=== PATIENT | female | born 1990 | race Caucasian/White ===

== ENCOUNTER 2017-12-02 15:42 | Outpatient (CLI) | payer OTHER | END 2017-12-02 15:43 | disposition home or self-care (01) | LOC: DTY/OP 15:42 | PROVIDERS: ATTEND Surgery | DX: E66.01 Morbid (severe) obesity due to excess calories (principal); I10 Essential (primary) hypertension | CPT/HCPCS: 97802 ==

== ENCOUNTER 2018-01-03 07:58 | Outpatient (CLI) | payer BC ==
[2018-01-03 09:27] LABS: #Basophils 0.1 thou/uL (0.0-0.2); #Eosinphils 0.2 thou/uL (0.0-0.7); #Lymphocytes 3.8 thou/uL (1.20-3.40); #Monocytes 0.7 thou/uL (0.11-0.59); #Neutrophils 4.5 thou/uL (1.40-6.50); %Eosinophils 2.3 % (0.0-10.0); %Lymphocytes 41.1 % (21.0-51.0); %Monocytes 7.3 % (0.0-10.0); %Neutrophils 48.4 % (42.0-75.0); Hemoglobin 13.8 g/dL (12.0-16.0); Mean Corpuscular HGB CONC 33.4 g/dL (32.0-36.0); Mean Corpuscular Hemoglobin 30.2 pg (27.0-31.0); Mean Corpuscular Volume 90.4 fL (78.0-98.0); Mean Platelet Volume 6.5 fL (7.4-10.4); Platelet Count 287 thou/uL (130-400); RBC Distribution Width 11.6 % (11.5-14.5); Red Blood Cell (RBC) Count 4.58 mill/uL (4.20-5.40); White Blood Cell (WBC) Count 9.2 thou/uL (4.8-10.8)
--- NOTE | 2018-01-03 09:28 | RAD ---
TWO VIEW CHEST: HISTORY: Preoperative evaluation. FINDINGS: The lung [place] are clear. The heart and mediastinum are unremarkable. The osseous structures are u nremarkable. IMPRESSION: Unremarkable chest. POS: [facility]
[2018-01-03 09:41] LABS: BHCG - Serum Negative (NEGATIVE); Pregs Control Background? CLEAR/WHITE (CLR/WHITE); Pregs Control Bar Appear? YES (CONTROL BAR)
[2018-01-03 09:44] LABS: Hemoglobin A1c 4.9 % (4.0-6.0)
[2018-01-03 09:51] LABS: ALT (SGPT) 26 U/L (8-55); AST (SGOT) 20 U/L (5-34); Albumin 4.5 g/dL (3.5-5.0); Alkaline Phosphatase 54 U/L (40-150); Anion Gap 10 mmol/L (10-20); BUN (Urea Nitrogen) 10 mg/dL (7.0-18.7); Bilirubin, Direct 0.2 mg/dL (0.1-0.3); Bilirubin, Total 0.3 mg/dL (0.2-1.2); Calc. Creatinine Clearance 0 mL/min (70-130); Calcium 9.4 mg/dL (7.8-10.44); Carbon Dioxide 25 mmol/L (22-29); Chloride 108 mmol/L (98-107); Estimated GFR-MDRD Greater than 90; Glucose 85 mg/dL (70-105); Potassium 4.5 mmol/L (3.5-5.1); Protein, Total 7.5 g/dL (6.0-8.3); Sodium 138 mmol/L (136-145)
[2018-01-03 10:10] LABS: Free T4 (Free Thyroxine) 0.98 ng/dL (0.70-1.48); Thyroid Stimulating Hormone 6.5763 uIU/mL (0.35-4.94)
--- NOTE | 2018-01-06 11:47 | EKG ---
Test Reason : Blood Pressure : / mmHG Vent. Rate : 079 BPM Atrial Rate : 079 BPM P-R Int : 132 ms QRS Dur : 082 ms QT Int : 396 ms P-R-T Axes : 032 069 040 degrees QTc Int : 454 ms Normal sinus rhythm with sinus arrhythmia Normal ECG Confirmed by ILANA YO ([id number]) on 01/06/2018 11:46:44 AM Referred By: LISY Confirmed By:ILANA YO
== END 2018-01-03 07:59 | disposition home or self-care (01) ==
LOC: LABBT 07:58
PROVIDERS: ATTEND Surgery
DX: Z01.818 Encounter for other preprocedural examination (principal); E66.01 Morbid (severe) obesity due to excess calories; E03.9 Hypothyroidism, unspecified; Z79.899 Other long term (current) drug therapy
CPT/HCPCS: 71046; 80048; 80076; 83036; 84439; 84443; 84703; 85025; 93005; 93010

== ENCOUNTER 2018-01-03 08:00 | Inpatient (IN) | payer BC ==
[2018-01-03 08:17] VITALS: BMI 40.8
[2018-01-06] MEDS ORDERED: Heparin 5,000 UNITS/ML VIAL ONE (12:34)
[2018-01-06] MEDS ORDERED: CEFAZOLIN 2 GM/50 ML BAG ONE (12:34)
[2018-01-06] MEDS ORDERED: Midazolam HCl 2 mg/2 ml Vial ONE (13:50)
[2018-01-06] MEDS ORDERED: Bupivacaine/Epinephrine 0.25% 30 ML VIAL ONE (13:57)
[2018-01-06] MEDS ORDERED: Fentanyl 100 MCG/2 ML VIAL ONE ×2 (14:04→15:42)
[2018-01-06] MEDS ORDERED: SUGAMMADEX SODIUM 500 MG/5 ML VIAL ONE (15:17)
[2018-01-06] MEDS ORDERED: Lidocaine 1% PF 5 ML VIAL ONE (15:28)
[2018-01-06] MEDS ORDERED: PROPOFOL 200 MG/20 ML VIAL ONE (15:28)
[2018-01-06] MEDS ORDERED: Ondansetron PF 4 MG/2 ML Vial ONE (15:28)
[2018-01-06] MEDS ORDERED: Glycopyrrolate 0.2 MG/ML 5 ML SYRINGE ONE (15:28)
[2018-01-06] MEDS ORDERED: Ketorolac Tromethamine 30 MG/ML VIAL ONE (15:28)
[2018-01-06] MEDS ORDERED: Zolpidem Tartrate 5 MG TAB PO PRN (15:35)
[2018-01-06] MEDS ORDERED: diphenhydrAMINE 25 MG CAP PO PRN (15:35)
[2018-01-06] MEDS ORDERED: Naloxone HCl 0.4 mg/ml Vial IV PRN (15:35)
[2018-01-06] MEDS ORDERED: Promethazine HCl 25 MG/ML VIAL IM PRN ×3 (15:35→17:29)
[2018-01-06] MEDS ORDERED: diphenhydrAMINE 50 MG/ML VIAL IM PRN (15:35)
[2018-01-06] MEDS ORDERED: Promethazine HCl 25 MG/ML VIAL SLOW IVP PRN (15:35)
[2018-01-06] MEDS ORDERED: Ondansetron HCl/PF 4 MG/2 ML Vial IVP PRN (15:35)
[2018-01-06] MEDS ORDERED: diphenhydrAMINE 50 MG/ML VIAL IVP PRN ×2 (15:35→17:29)
[2018-01-06] MEDS ORDERED: fentaNYL Citrate/PF 2,000 MCG in Sodium Chloride 0.9% 60 ML IV PRN (15:35)
[2018-01-06] MEDS ORDERED: Meperidine HCl/PF 25 MG/ML VIAL SLOW IVP PRN (15:42)
[2018-01-06] MEDS ORDERED: Communication Order-Pharmacy FS SCH (15:45)
[2018-01-06] MEDS ORDERED: Ondansetron PF 4 MG/2 ML Vial IVP PRN (17:29)
[2018-01-06] MEDS ORDERED: Hydrocodone-Acetamin 15 ML UDCUP PO PRN (17:29)
[2018-01-06] MEDS ORDERED: Dextrose 50% Abboject 50 ML SYRINGE SLOW IVP PRN (17:29)
[2018-01-06] MEDS ORDERED: Dextrose 5% in Water 1,000 ML IV PRN (17:29)
[2018-01-06] MEDS ORDERED: hydrALAZINE 20 MG/ML VIAL SLOW IVP PRN (17:29)
[2018-01-06] MEDS: D5 1/2 NS w/20 mEq KCL 1,000 ML IV SCH (18:24)
[2018-01-06] MEDS: Acetaminophen 1,000 MG in Premix Bag 1 BAG IVPB SCH (19:25)
[2018-01-06] MEDS ORDERED: Scopolamine 1.5 mg/72 hour Patch TOP SCH (19:45)
[2018-01-06] MEDS ORDERED: Enoxaparin Sodium 40 MG/0.4 ML SYRINGE SC SCH (21:00)
[2018-01-06] MEDS: Ondansetron PF 4 MG/2 ML Vial IVP PRN (22:51)
[2018-01-07] MEDS: Acetaminophen 1,000 MG in Premix Bag 1 BAG IVPB SCH ×2 (01:10→07:58)
[2018-01-07] MEDS: D5 1/2 NS w/20 mEq KCL 1,000 ML IV SCH ×2 (01:19→12:39)
[2018-01-07] MEDS ORDERED: Levothyroxine Sodium 25 MCG TAB PO SCH (06:00)
[2018-01-07] MEDS ORDERED: Levothyroxine Sodium 112 MCG TAB PO SCH (06:00)
[2018-01-07 06:09] LABS: #Eosinphils 0.1 thou/uL (0.0-0.7); #Lymphocytes 3.6 thou/uL (1.20-3.40); #Monocytes 0.9 thou/uL (0.11-0.59); #Neutrophils 6.9 thou/uL (1.40-6.50); %Basophils 0.3 % (0.0-1.0); %Eosinophils 1.1 % (0.0-10.0); %Lymphocytes 30.6 % (21.0-51.0); %Monocytes 8.1 % (0.0-10.0); %Neutrophils 59.9 % (42.0-75.0); Hemoglobin 13.1 g/dL (12.0-16.0); Mean Corpuscular HGB CONC 34.4 g/dL (32.0-36.0); Mean Corpuscular Hemoglobin 30.9 pg (27.0-31.0); Mean Platelet Volume 6.4 fL (7.4-10.4); Platelet Count 274 thou/uL (130-400); RBC Distribution Width 11.5 % (11.5-14.5); Red Blood Cell (RBC) Count 4.24 mill/uL (4.20-5.40); White Blood Cell (WBC) Count 11.6 thou/uL (4.8-10.8)
[2018-01-07 06:13] LABS: Anion Gap 12 mmol/L (10-20); BUN (Urea Nitrogen) 6 mg/dL (7.0-18.7); Calc. Creatinine Clearance 225 mL/min (70-130); Calcium 8.3 mg/dL (7.8-10.44); Carbon Dioxide 21 mmol/L (22-29); Chloride 108 mmol/L (98-107); Estimated GFR-MDRD Greater than 90; Glucose 104 mg/dL (70-105); Potassium 3.6 mmol/L (3.5-5.1); Sodium 137 mmol/L (136-145)
[2018-01-07] MEDS: Ondansetron PF 4 MG/2 ML Vial IVP PRN (07:57)
[2018-01-07] MEDS ORDERED: Hydrocodone-Acetamin 15 ML UDCUP PO PRN (08:54)
[2018-01-07] MEDS ORDERED: Pramipexole Di-HCl 1 MG TAB PO SCH (09:00)
[2018-01-07] MEDS ORDERED: LEVONORGESTREL ETHIN ESTRADIOL PO SCH (09:00)
[2018-01-07] MEDS ORDERED: Pantoprazole 40 MG VIAL IVP SCH (09:00)
[2018-01-07] MEDS ORDERED: Topiramate 25 MG TAB PO SCH (09:00)
[2018-01-07] MEDS ORDERED: Escitalopram Oxalate 20 mg Tablet PO SCH (09:00)
[2018-01-07 11:40] VITALS: BP 150/97; TEMP 98.6
--- NOTE | 2018-01-07 11:48 | DIS ---
DATE OF ADMISSION: January 06, 2018 DATE OF DISCHARGE: January 07, 2018 ADMITTING DIAGNOSIS: Morbid obesity. DISCHARGE DIAGNOSIS: Morbid obesity. PROCEDURE: Laparoscopic sleeve gastrectomy by Dr. Carrero without complication. CONDITION AT DISCHARGE: Improved. STAFF: Dr. Jesse Carrero. HOSPITAL COURSE: On postop day #1, the patient is tolerating the liquid diet. She is ambulatory. N o fevers or tachycardia. Her abdomen is healing well. ASSESSMENT: Postop day #1, sleeve. PLAN: Discharge home. Prescriptions for Lortab elixir Zofran already called in. Follow up with me in 2 weeks.
--- NOTE | 2018-01-08 15:25 | OP ---
DATE OF PROCEDURE: 01/06/2018. PREOPERATIVE DIAGNOSIS: Morbid obesity with a body mass index of 41. POSTOPERATIVE DIAGNOSIS: Morbid obesity with a body mass index of 41. PROCEDURE PERFORMED: Laparoscopic sleeve gastrectomy, [place] staple line reinforcement and 38-Dominican b ougie. SURGEON: Dr. Carrero. ANESTHESIA: General. ESTIMATED BLOOD LOSS: Minimal. COMPLICATIONS: None. SPECIMEN: Stomach. FINDINGS: Normal postoperative EGD. PROCEDURE IN DETAIL: The patient was taken to the operating room and placed supine on the table. Af ter general anesthetic was obtained, arms and legs were double strapped to bariatric table. OG tube was used to decompress the stomach. The abdomen is prepped and draped in a sterile fashion. Left neri bcostal 5-mm Optiview trocar was placed in usual fashion and high-flow pneumoperitoneum was obtained. Left and right abdominal 12-mm ports as well as a right subcostal 5 mm port were placed under direc t visualization. A 5 mm incision was made at the xiphoid and the Ngoc was used to raise the sharon er off the GE junction. Short gastrics were taken down from mid body of stomach to left prema of the diaphragm. Left prema, posterior fundus, angle of His is completely dissected. Short gastrics were t aken down to a distance of 5 cm proximal to the pylorus. A 38-Dominican bougie was brought and its tip left in the antrum of the stomach. Multiple loads of an [place] stapling device are used to form the sleeve. The first is fired up at a distance of 6 cm proximal to the pylorus angled up towards the i ncisura. Care was taken to avoid being too close to incisura. Multiple loads were then fired up milton ng the bougie, stomach is completely transected at the angle of His. The stomach was removed from th e left abdominal incision. This fascial defect was closed using GraNee needle 0 Vicryl tie. All por t sites were infiltrated using local anesthetic. Bougie was removed and an EGD scope was passed into the esophagus, stomach to the level of the duodenum without obstruction. There is no air leakage or bleeding on the staple line. There was no stricture at the incisura. EGD scope was used to decompr ess the stomach, it was pulled and removed. All ports are removed under direct visualization without bleeding. Pneumoperitoneum was let down. The Vicryls is closed in the left abdomen. All incisions were irrigated and closed using 4-0 Monocryl and Dermabond. The patient was en route to recovery in stable condition. All instrument counts, needle counts, and lap counts were correct.
== END 2018-01-07 13:25 | disposition home or self-care (01) | DRG 621 ==
LOC: SURG A 01-06 11:55 → SJJU 01-06 16:59
PROVIDERS: ADMIT Surgery; ATTEND Surgery
PROC: 0DB64Z3 Excision of Stomach, Percutaneous Endoscopic Approach, Vertical (ICD-10-PCS; principal; 2018-01-06)
DX: E66.01 Morbid (severe) obesity due to excess calories (principal); G43.909 Migraine, unspecified, not intractable, without status migrainosus; E03.9 Hypothyroidism, unspecified; G25.81 Restless legs syndrome; R73.03 Prediabetes; E28.2 Polycystic ovarian syndrome; Z68.41 Body mass index [BMI] 40.0-44.9, adult; Z01.818 Encounter for other preprocedural examination; Z79.899 Other long term (current) drug therapy
CPT/HCPCS: 36415; 71046; 80048; 80076; 83036; 84439; 84443; 84703; 85025; 88307; 88312; 93005; 93010; 94760; C9113; J0131; J1644; J1650; J1885; J2001; J2250; J2405; J2550; J2704; J3010; J7050

== ENCOUNTER 2020-04-23 21:29 | Emergency (ER) | payer BC, SELFPAY ==
[2020-04-24 00:44] LABS: #Basophils 0.1 thou/uL (0.0-0.2); #Eosinphils 0.1 thou/uL (0.0-0.7); #Lymphocytes 4.1 thou/uL (1.20-3.40); #Monocytes 0.6 thou/uL (0.11-0.59); #Neutrophils 4.1 thou/uL (1.40-6.50); %Basophils 1.2 % (0.0-1.0); %Eosinophils 1.7 % (0.0-10.0); %Lymphocytes 45.4 % (21.0-51.0); %Monocytes 6.7 % (0.0-10.0); %Neutrophils 45.1 % (42.0-75.0); Hemoglobin 14.3 g/dL (12.0-16.0); Mean Corpuscular HGB CONC 35.2 g/dL (32.0-36.0); Mean Corpuscular Hemoglobin 31.9 pg (27.0-31.0); Mean Corpuscular Volume 90.7 fL (78.0-98.0); Mean Platelet Volume 6.2 fL (7.4-10.4); Platelet Count 306 thou/uL (130-400); RBC Distribution Width 11.2 % (11.5-14.5); Red Blood Cell (RBC) Count 4.47 mill/uL (4.20-5.40)
[2020-04-24 01:05] LABS: ALT (SGPT) 30 U/L (8-55); AST (SGOT) 22 U/L (5-34); Albumin 4.5 g/dL (3.5-5.0); Alkaline Phosphatase 62 U/L (40-110); Anion Gap 12 mmol/L (10-20); BUN (Urea Nitrogen) 13 mg/dL (7.0-18.7); Bilirubin, Total 0.4 mg/dL (0.2-1.2); CK (CPK) 56 U/L (29-168); Calc. Creatinine Clearance 0 mL/min (70-130); Calcium 9.1 mg/dL (7.8-10.44); Carbon Dioxide 24 mmol/L (22-29); Chloride 109 mmol/L (98-107); Globulin 3.2 g/dL (2.4-3.5); Glucose 85 mg/dL (70-105); Protein, Total 7.7 g/dL (6.0-8.3); Sodium 141 mmol/L (136-145)
[2020-04-24] MEDS ORDERED: Ondansetron PF 4 MG/2 ML Vial ONE (02:33)
[2020-04-24] MEDS ORDERED: Ketorolac Tromethamine 30 MG/ML VIAL ONE (02:33)
[2020-04-24] MEDS ORDERED: diphenhydrAMINE 50 MG/ML VIAL ONE ×2 (02:33→03:45)
[2020-04-24 03:06] LABS: BHCG - Serum Negative (NEGATIVE); Pregs Control Background? CLEAR/WHITE (CLR/WHITE); Pregs Control Bar Appear? YES (CONTROL BAR)
[2020-04-24] MEDS ORDERED: Morphine 4 MG/ML VIAL ONE (03:45)
--- NOTE | 2020-04-24 08:33 | RAD ---
XR Chest 1 View Portable History: Chest pain Comparison: Radiograph January 2018 Findings: No confluent airspace consolidation, pneumothorax or effusion. No acute osseous abnormality . Cardiac silhouette and mediastinal contours are within normal limits. Impression: No acute intrathoracic abnormality.
[2020-04-24] MEDS ORDERED: Iopamidol-370 76% 500 ML 1 ML ONE (09:30)
--- NOTE | 2020-04-24 10:20 | CT ---
PRELIMINARY REPORT/[facility]/EMERGENCY AFTER HOURS PROCEDURE: EXAM: CTA Chest with Intravenous Contrast CLINICAL HISTORY: 29-year-old female patient presents ER with complaint of chest pain, shortness of b reath that began yesterday and worsened earlier this evening. The patient reports that her shortness of breath has worsened and she has pain with deep inspiration. The patient has no fever, body aches, chills, vomiting, diarrhea, abdominal pain, or any other symptoms at this time. D-Dimer Test 0.92 - H TECHNIQUE: Axial CTA images of the chest with intravenous contrast. Three-dimensional MIP/volume rend ered reformations were performed. CONTRAST: With; ISOVUE COMPARISON: None provided. FINDINGS: PULMONARY ARTERIES There is no intraluminal filling defect suspicious for PE. AORTA No thoracic aortic aneurysm or dissection. LUNGS The lungs are clear. No pulmonary mass. No focal airspace consolidation. PLEURAL SPACES No pleural effusion. No pneumothorax. HEART AND MEDIASTINUM No cardiomegaly. No significant pericardial effusion. LYMPH NODES Multiple prominent lymph nodes along the upper trachea with the largest measuring up to 8 .6 mm in short axis (series 2, image 3). No mediastinal or hilar lymphadenopathy. BONES No focal osseous abnormality or acute fracture. CHEST WALL AND UPPER ABDOMEN Post surgical changes are present along the greater curvature of the sto mach, partially visualized. Images through the upper abdomen are otherwise unremarkable. The chest w all is unremarkable. IMPRESSION: No evidence of pulmonary embolism or other acute pulmonary findings. ELECTRONICALLY SIGNED BY: Sarmad Narayan MD Apr 24, 2020 4:34:47 AM METHODS EXAMINER FINAL REPORT CT ANGIO OF CHEST PERFORMED WITH INTRAVENOUS CONTRAST ENHANCEMENT AND 3D RECONSTRUCTION: HISTORY: Chest pain and shortness of breath. FINDINGS: The lungs are clear of any infiltrative process. No pleural effusions or pulmonary nodules. There is no significant mediastinal or hilar adenopathy. Thoracic aorta is normal in caliber. There is fairly good pulmonary artery opacification. No CT evidence for pulmonary embolus. Postoperative changes of the stomach are present. IMPRESSION: 1. No CT evidence for a pulmonary embolus. 2. This report is in agreement with the temporary report issued by [facility]. POS: OFF
== END 2020-04-24 05:10 | disposition home or self-care (01) ==
LOC: ERS 21:29
DX: R07.9 Chest pain, unspecified (principal); R06.02 Shortness of breath; E03.9 Hypothyroidism, unspecified
CPT/HCPCS: 36415; 71045; 71275; 80053; 82550; 84484; 84703; 85025; 85379; 96374; 96375; 96376; J1200; J1885; J2270; J2405; Q9967

== ENCOUNTER 2020-08-17 08:20 | Outpatient (CLI) | payer BC | END 2020-08-17 08:21 | disposition home or self-care (01) | LOC: BICRAD 08:20 | PROVIDERS: ATTEND Preventive Medicine Undersea and Hyperbaric Medicine | DX: M47.816 Spondylosis without myelopathy or radiculopathy, lumbar region (principal) | CPT/HCPCS: 72100; 72170 ==

== ENCOUNTER 2021-03-16 04:30 | Emergency (ER) | payer SELFPAY ==
[2021-03-16 05:52] LABS: #Basophils 0.1 thou/uL (0.0-0.2); #Eosinphils 0.2 thou/uL (0.0-0.7); #Lymphocytes 4.2 thou/uL (1.20-3.40); #Monocytes 1.1 thou/uL (0.11-0.59); #Neutrophils 7.8 thou/uL (1.40-6.50); %Basophils 0.7 % (0.0-1.0); %Eosinophils 1.8 % (0.0-10.0); %Lymphocytes 31.3 % (21.0-51.0); %Neutrophils 58.3 % (42.0-75.0); Hemoglobin 14.8 g/dL (12.0-16.0); Mean Corpuscular HGB CONC 35.9 g/dL (32.0-36.0); Mean Corpuscular Hemoglobin 32.6 pg (27.0-31.0); Mean Corpuscular Volume 90.8 fL (78.0-98.0); Mean Platelet Volume 6.4 fL (7.4-10.4); Platelet Count 305 thou/uL (130-400); RBC Distribution Width 11.4 % (11.5-14.5); Red Blood Cell (RBC) Count 4.52 mill/uL (4.20-5.40); White Blood Cell (WBC) Count 13.4 thou/uL (4.8-10.8)
[2021-03-16] MEDS ORDERED: Promethazine HCl 25 MG/ML VIAL ONE ×2 (06:02→08:14)
[2021-03-16 06:13] LABS: ALT (SGPT) 68 U/L (8-55); AST (SGOT) 54 U/L (5-34); Albumin 4.5 g/dL (3.5-5.0); Alkaline Phosphatase 66 U/L (40-110); Anion Gap 15 mmol/L (10-20); BUN (Urea Nitrogen) 10 mg/dL (7.0-18.7); Bilirubin, Total 0.5 mg/dL (0.2-1.2); Calc. Creatinine Clearance 0 mL/min (70-130); Calcium 9.7 mg/dL (7.8-10.44); Carbon Dioxide 22 mmol/L (22-29); Chloride 104 mmol/L (98-107); Globulin 3.8 g/dL (2.4-3.5); Glucose 108 mg/dL (70-105); Lipase 19 U/L (8-78); Potassium 3.8 mmol/L (3.5-5.1); Protein, Total 8.3 g/dL (6.0-8.3); Sodium 137 mmol/L (136-145)
[2021-03-16 06:16] LABS: BHCG - Serum Negative (NEGATIVE); Pregs Control Background? CLEAR/WHITE (CLR/WHITE); Pregs Control Bar Appear? YES (CONTROL BAR)
[2021-03-16] MEDS ORDERED: Ondansetron PF 4 MG/2 ML Vial ONE (06:49)
[2021-03-16 06:53] LABS: Bilirubin Negative (Negative); Blood, Urine Negative (Negative); Clarity Turbid (Clear); Glucose, Urine (Dipstick) Normal (Negative); Ketone, Urine Negative (Negative); Leukocyte Negative Leu/uL (Negative); Nitrite Negative (Negative); Protein, Urine (Dipstick) 100 mg/dL (Neg-Trace); Specific Gravity, Urine 1.025 (1.002-1.036); Urobilinogen Normal mg/dL (Less than 2); WBC/HPF 0-3 HPF (0-3); pH, Urine 5.5 (5.0-9.0)
[2021-03-16 07:08] LABS: Bacteria/HPF 2+ HPF (None Seen); RBC/HPF 0-3 HPF (0-3)
[2021-03-16] MEDS ORDERED: Iopamidol-370 76% 500 ML 1 ML ONE (14:05)
== END 2021-03-16 08:47 | disposition home or self-care (01) ==
LOC: ERS 04:30
DX: K52.9 Noninfective gastroenteritis and colitis, unspecified (principal); G43.909 Migraine, unspecified, not intractable, without status migrainosus; E03.9 Hypothyroidism, unspecified; K21.9 Gastro-esophageal reflux disease without esophagitis; F17.290 Nicotine dependence, other tobacco product, uncomplicated
CPT/HCPCS: 71045; 74177; 80053; 81003; 81015; 83690; 84484; 84703; 85025; 87086; 93005; 96372; 96374; 96375; 96376; J0500; J2405; J2550; Q9967

== ENCOUNTER 2021-04-24 14:09 | Inpatient (IN) | payer BC ==
[~2021-04-24 14:09] MED LIST: GASTROGRAFIN 30 ML BOT ONE; Iopamidol 370 76% 100 ML VIAL ONE
[2021-04-24] MEDS ORDERED: Promethazine HCl 25 MG/ML VIAL ONE (14:43)
[2021-04-24] MEDS ORDERED: Ketorolac Tromethamine 30 MG/ML VIAL ONE ×2 (14:52→15:00)
[2021-04-24 15:04] LABS: #Basophils 0.1 thou/uL (0.0-0.2); #Eosinphils 0.1 thou/uL (0.0-0.7); #Monocytes 0.6 thou/uL (0.11-0.59); %Basophils 0.9 % (0.0-1.0); %Eosinophils 1.5 % (0.0-10.0); %Lymphocytes 38.6 % (21.0-51.0); %Monocytes 7.1 % (0.0-10.0); %Neutrophils 51.9 % (42.0-75.0); Hemoglobin 14.3 g/dL (12.0-16.0); Mean Corpuscular HGB CONC 33.7 g/dL (32.0-36.0); Mean Corpuscular Hemoglobin 31.1 pg (27.0-31.0); Mean Corpuscular Volume 92.5 fL (78.0-98.0); Mean Platelet Volume 6.3 fL (7.4-10.4); Platelet Count 268 thou/uL (130-400); RBC Distribution Width 11.7 % (11.5-14.5); Red Blood Cell (RBC) Count 4.58 mill/uL (4.20-5.40); White Blood Cell (WBC) Count 7.7 thou/uL (4.8-10.8)
[2021-04-24 15:25] LABS: ALT (SGPT) 76 U/L (8-55); AST (SGOT) 60 U/L (5-34); Albumin 4.5 g/dL (3.5-5.0); Alkaline Phosphatase 66 U/L (40-110); Anion Gap 15 mmol/L (10-20); BUN (Urea Nitrogen) 9 mg/dL (7.0-18.7); Bilirubin, Total 0.5 mg/dL (0.2-1.2); Calc. Creatinine Clearance 0 mL/min (70-130); Calcium 9.3 mg/dL (7.8-10.44); Carbon Dioxide 22 mmol/L (22-29); Chloride 107 mmol/L (98-107); Globulin 3.5 g/dL (2.4-3.5); Glucose 104 mg/dL (70-105); Lipase 25 U/L (8-78); Potassium 3.6 mmol/L (3.5-5.1); Sodium 140 mmol/L (136-145)
[2021-04-24 15:34] LABS: Bilirubin Negative (Negative); Blood, Urine Negative (Negative); Clarity Clear (Clear); Glucose, Urine (Dipstick) Normal (Negative); Ketone, Urine Negative (Negative); Leukocyte Negative Leu/uL (Negative); Nitrite Negative (Negative); Protein, Urine (Dipstick) 10 mg/dL (Neg-Trace); Specific Gravity, Urine 1.025 (1.002-1.036)
[2021-04-24] MEDS ORDERED: Ondansetron PF 4 MG/2 ML Vial ONE (16:15)
[2021-04-24 16:17] LABS: BHCG - Serum Negative (NEGATIVE); Pregs Control Background? CLEAR/WHITE (CLR/WHITE); Pregs Control Bar Appear? YES (CONTROL BAR)
[2021-04-24] MEDS ORDERED: Morphine 4 MG/ML VIAL ONE (17:31)
[2021-04-24] MEDS ORDERED: Ondansetron ODT 4 MG TAB PO PRN (19:00)
[2021-04-24] MEDS ORDERED: Promethazine HCl 25 MG in Sodium Chloride 0.9% 50 ML IVPB PRN (19:09)
[2021-04-24 19:25] VITALS: BMI 40.7
[2021-04-24] MEDS: Lactated Ringer's 1,000 ML IV SCH (20:29)
[2021-04-24] MEDS: Pramipexole Di-HCl 1 MG TAB PO SCH (21:32)
[2021-04-24] MEDS: Escitalopram Oxalate 20 mg Tablet PO SCH (21:32)
[2021-04-24] MEDS: Topiramate 25 MG TAB PO SCH (21:32)
[2021-04-24] MEDS ORDERED: Acetaminophen 650 MG/20.3 ML UDCUP PO PRN (21:35)
[2021-04-24 22:22] LABS: Amphetamine Not Detected (NotDetected); Barbiturates Screen Detected (NotDetected); Benzodiazepine Screen Not Detected (NotDetected); Cocaine Metabolite Screen Not Detected (NotDetected); Methadone Not Detected (NotDetected); Methamphetamine Not Detected (NotDetected); Opiate Screen Not Detected (NotDetected); Oxycodone Screen Not Detected (NotDetected); Phencyclidine (PCP) Not Detected (NotDetected); THC/Cannabinoid Screen Not Detected (NotDetected); Tricyclic Screen Not Detected (NotDetected)
[2021-04-25] MEDS ORDERED: Haloperidol 1 MG TAB PO SCH (00:15)
[2021-04-25] MEDS ORDERED: tiZANidine HCl 4 MG TAB PO SCH (00:15)
[2021-04-25] MEDS: Lactated Ringer's 1,000 ML IV SCH ×5 (03:02→21:42)
[2021-04-25] MEDS: Promethazine 25 MG TAB PO PRN ×3 (03:02→17:16)
[2021-04-25] MEDS: Levothyroxine Sodium 25 MCG TAB PO SCH (06:34)
[2021-04-25] MEDS: Levothyroxine Sodium 112 MCG TAB PO SCH (06:34)
[2021-04-25 07:18] LABS: ALT (SGPT) 57 U/L (8-55); AST (SGOT) 39 U/L (5-34); Albumin 3.7 g/dL (3.5-5.0); Alkaline Phosphatase 53 U/L (40-110); Anion Gap 10 mmol/L (10-20); BUN (Urea Nitrogen) 6 mg/dL (7.0-18.7); Bilirubin, Total 0.3 mg/dL (0.2-1.2); Calc. Creatinine Clearance 212 mL/min (70-130); Calcium 8.3 mg/dL (7.8-10.44); Carbon Dioxide 22 mmol/L (22-29); Chloride 111 mmol/L (98-107); Globulin 2.6 g/dL (2.4-3.5); Glucose 93 mg/dL (70-105); Potassium 3.9 mmol/L (3.5-5.1); Protein, Total 6.3 g/dL (6.0-8.3); Sodium 139 mmol/L (136-145)
[2021-04-25] MEDS: Aripiprazole 10 MG TAB PO SCH (08:48)
[2021-04-25] MEDS: Enoxaparin Sodium 40 MG/0.4 ML SYRINGE SC SCH (08:48)
[2021-04-25] MEDS ORDERED: Non-Formulary Item 1 EACH (Levothyroxine Sodium [Levothyroxine Sodium] 137 MCG Tablet) PO SCH (09:00)
[2021-04-25] MEDS: Morphine 4 MG/ML VIAL SLOW IVP PRN ×2 (09:02→17:16)
[2021-04-25 10:19] LABS: HBCM Index 0.13 S/CO (0-0.79); HBSAg Index 0.28 S/CO (0-0.99); Hep A IgM AB Non-Reactive (NonReactive); Hep A IgM S/CO 0.11 S/CO (0-0.79); Hep B Surf Ag Non-Reactive S/CO (NonReactive); Hep C IgG Ab Non-Reactive (NonReactive); Hep C Index 0.09 S/CO (0-0.79); Hepatitis B Core IgM Abs Non-Reactive (NonReactive)
[2021-04-25 11:47] LABS: SARS-CoV-2 PCR by NAA Not Detected (NotDetected)
[2021-04-25] MEDS ORDERED: chlorproMAZINE HCl 50 MG/2 ML AMP SLOW IVP SCH (13:00)
[2021-04-25] MEDS: diphenhydrAMINE 50 MG/ML VIAL IVP PRN (14:27)
[2021-04-25] MEDS ORDERED: methylPREDNISolone Sod Succ/PF 125 MG/2 ML VIAL IVP SCH (16:15)
[2021-04-25] MEDS ORDERED: Magnesium 2 GM/50 ML(in water) 2 GM in Premix Bag 1 BAG IVPB SCH (16:15)
[2021-04-25] MEDS ORDERED: GoLYTELY 4,000 ml Bottle PO SCH (20:00)
[2021-04-25] MEDS: Escitalopram Oxalate 20 mg Tablet PO SCH (21:43)
[2021-04-25] MEDS: tiZANidine HCl 4 MG TAB PO SCH (21:43)
[2021-04-25] MEDS: Topiramate 25 MG TAB PO SCH (21:43)
[2021-04-25] MEDS: Pramipexole Di-HCl 1 MG TAB PO SCH (21:44)
[2021-04-25] MEDS: Promethazine HCl 25 MG in Sodium Chloride 0.9% 50 ML IVPB PRN (22:44)
[2021-04-26] MEDS: Ondansetron PF 4 MG/2 ML Vial IVP PRN (02:46)
[2021-04-26] MEDS: Morphine 4 MG/ML VIAL SLOW IVP PRN ×4 (02:53→22:06)
[2021-04-26] MEDS: Promethazine HCl 25 MG in Sodium Chloride 0.9% 50 ML IVPB PRN ×2 (04:56→22:02)
[2021-04-26] MEDS: Levothyroxine Sodium 25 MCG TAB PO SCH (05:21)
[2021-04-26] MEDS: Levothyroxine Sodium 112 MCG TAB PO SCH (05:21)
[2021-04-26 05:30] LABS: ALT (SGPT) 57 U/L (8-55); AST (SGOT) 30 U/L (5-34); Albumin 4.3 g/dL (3.5-5.0); Alkaline Phosphatase 62 U/L (40-110); Anion Gap 13 mmol/L (10-20); BUN (Urea Nitrogen) 4 mg/dL (7.0-18.7); Bilirubin, Total 0.3 mg/dL (0.2-1.2); Calc. Creatinine Clearance 209 mL/min (70-130); Calcium 8.7 mg/dL (7.8-10.44); Carbon Dioxide 20 mmol/L (22-29); Chloride 110 mmol/L (98-107); Glucose 179 mg/dL (70-105); Protein, Total 7.3 g/dL (6.0-8.3); Sodium 139 mmol/L (136-145)
[2021-04-26] MEDS: Lactated Ringer's 1,000 ML IV SCH ×4 (09:10→20:40)
[2021-04-26] MEDS: Aripiprazole 10 MG TAB PO SCH (09:22)
[2021-04-26] MEDS: Enoxaparin Sodium 40 MG/0.4 ML SYRINGE SC SCH (09:22)
[2021-04-26] MEDS: diphenhydrAMINE 50 MG/ML VIAL IVP PRN ×2 (10:41→17:52)
[2021-04-26] MEDS ORDERED: Midazolam HCl 2 mg/2 ml Vial ONE (14:07)
[2021-04-26] MEDS ORDERED: PROPOFOL 200 MG/20 ML VIAL ONE (15:27)
[2021-04-26] MEDS ORDERED: Magnesium 2 GM/50 ML(in water) 2 GM in Premix Bag 1 BAG IVPB SCH (17:30)
[2021-04-26] MEDS ORDERED: methylPREDNISolone Sod Succ 40 MG VIAL IVP SCH (17:30)
[2021-04-26] MEDS: Topiramate 25 MG TAB PO SCH (20:38)
[2021-04-26] MEDS: Pramipexole Di-HCl 1 MG TAB PO SCH (20:38)
[2021-04-26] MEDS: Escitalopram Oxalate 20 mg Tablet PO SCH (20:38)
[2021-04-26] MEDS: tiZANidine HCl 4 MG TAB PO SCH (20:38)
[2021-04-27] MEDS: Lactated Ringer's 1,000 ML IV SCH ×5 (01:51→23:42)
[2021-04-27] MEDS: diphenhydrAMINE 50 MG/ML VIAL IVP PRN ×3 (01:51→20:07)
[2021-04-27] MEDS: Morphine 4 MG/ML VIAL SLOW IVP PRN ×4 (01:52→23:52)
[2021-04-27] MEDS: Levothyroxine Sodium 112 MCG TAB PO SCH (05:11)
[2021-04-27] MEDS: Levothyroxine Sodium 25 MCG TAB PO SCH (05:11)
[2021-04-27 05:17] LABS: ALT (SGPT) 50 U/L (8-55); AST (SGOT) 27 U/L (5-34); Albumin 4.1 g/dL (3.5-5.0); Alkaline Phosphatase 52 U/L (40-110); Anion Gap 11 mmol/L (10-20); BUN (Urea Nitrogen) 6 mg/dL (7.0-18.7); Bilirubin, Total 0.3 mg/dL (0.2-1.2); Calc. Creatinine Clearance 206 mL/min (70-130); Calcium 8.9 mg/dL (7.8-10.44); Carbon Dioxide 24 mmol/L (22-29); Chloride 107 mmol/L (98-107); Glucose 131 mg/dL (70-105); Potassium 4.4 mmol/L (3.5-5.1); Protein, Total 7.1 g/dL (6.0-8.3); Sodium 138 mmol/L (136-145)
[2021-04-27] MEDS: Ondansetron PF 4 MG/2 ML Vial IVP PRN (06:02)
[2021-04-27] MEDS: Enoxaparin Sodium 40 MG/0.4 ML SYRINGE SC SCH (07:36)
[2021-04-27] MEDS: Aripiprazole 10 MG TAB PO SCH (07:37)
[2021-04-27] MEDS: Promethazine HCl 25 MG in Sodium Chloride 0.9% 50 ML IVPB PRN ×2 (12:52→20:08)
[2021-04-27] MEDS ORDERED: Fioricet 325/50/40 mg Tablet PO PRN (14:21)
[2021-04-27] MEDS: Ondansetron ODT 4 MG TAB PO SCH ×2 (15:10→20:08)
[2021-04-27] MEDS: Topiramate 25 MG TAB PO SCH (20:08)
[2021-04-27] MEDS: Escitalopram Oxalate 20 mg Tablet PO SCH (20:08)
[2021-04-27] MEDS ORDERED: hydrALAZINE 20 MG/ML VIAL SLOW IVP PRN (22:46)
[2021-04-28] MEDS: diphenhydrAMINE 50 MG/ML VIAL IVP PRN ×2 (02:12→12:50)
[2021-04-28] MEDS: Ondansetron ODT 4 MG TAB PO SCH ×2 (02:15→12:39)
[2021-04-28] MEDS: Promethazine HCl 25 MG in Sodium Chloride 0.9% 50 ML IVPB PRN (03:27)
[2021-04-28] MEDS: Levothyroxine Sodium 25 MCG TAB PO SCH ×2 (05:03→05:41)
[2021-04-28] MEDS: Levothyroxine Sodium 112 MCG TAB PO SCH ×2 (05:03→05:41)
[2021-04-28] MEDS: Morphine 4 MG/ML VIAL SLOW IVP PRN ×2 (05:39→12:49)
[2021-04-28] MEDS: Ondansetron PF 4 MG/2 ML Vial IVP PRN (05:40)
[2021-04-28] MEDS: Lactated Ringer's 1,000 ML IV SCH (05:42)
[2021-04-28 06:46] LABS: ALT (SGPT) 62 U/L (8-55); AST (SGOT) 53 U/L (5-34); Albumin 4.3 g/dL (3.5-5.0); Alkaline Phosphatase 57 U/L (40-110); Anion Gap 15 mmol/L (10-20); BUN (Urea Nitrogen) 6 mg/dL (7.0-18.7); Bilirubin, Total 0.5 mg/dL (0.2-1.2); Calc. Creatinine Clearance 186 mL/min (70-130); Carbon Dioxide 24 mmol/L (22-29); Chloride 106 mmol/L (98-107); Glucose 88 mg/dL (70-105); Potassium 3.6 mmol/L (3.5-5.1); Protein, Total 7.3 g/dL (6.0-8.3); Sodium 141 mmol/L (136-145)
[2021-04-28] MEDS: Aripiprazole 10 MG TAB PO SCH (12:39)
[2021-04-28] MEDS: Enoxaparin Sodium 40 MG/0.4 ML SYRINGE SC SCH (12:39)
[2021-04-28 13:44] VITALS: BP 143/88; TEMP 98.1
[2021-05-03 19:09] LABS: Routine O & P Final report (.)
== END 2021-04-28 15:25 | disposition home or self-care (01) | DRG 392 ==
LOC: ERS 14:09 → MSONC 17:45 → OBSVTOIN 04-26 14:14
PROVIDERS: ADMIT Family Medicine; ATTEND Family Medicine
PROC: 0DBE8ZX Excision of Large Intestine, Via Natural or Artificial Opening Endoscopic, Diagnostic (ICD-10-PCS; principal; 2021-04-26)
DX: R11.2 Nausea with vomiting, unspecified (principal); Z68.41 Body mass index [BMI] 40.0-44.9, adult; T42.8X5A Adverse effect of antiparkinsonism drugs and other central muscle-tone depressants, initial encounter; T39.1X5A Adverse effect of 4-Aminophenol derivatives, initial encounter; Z20.822 Contact with and (suspected) exposure to COVID-19; K52.9 Noninfective gastroenteritis and colitis, unspecified; R74.01 Elevation of levels of liver transaminase levels; K76.0 Fatty (change of) liver, not elsewhere classified; G43.909 Migraine, unspecified, not intractable, without status migrainosus; E66.01 Morbid (severe) obesity due to excess calories; E03.9 Hypothyroidism, unspecified; G25.81 Restless legs syndrome; F32.A Depression, unspecified; F41.9 Anxiety disorder, unspecified; K21.9 Gastro-esophageal reflux disease without esophagitis; E28.2 Polycystic ovarian syndrome; E06.3 Autoimmune thyroiditis; Z88.8 Allergy status to other drugs, medicaments and biological substances; Z90.89 Acquired absence of other organs; Z79.899 Other long term (current) drug therapy; Z79.890 Hormone replacement therapy; Z98.890 Other specified postprocedural states; Z82.49 Family history of ischemic heart disease and other diseases of the circulatory system; Z81.8 Family history of other mental and behavioral disorders; Z80.8 Family history of malignant neoplasm of other organs or systems; Z98.84 Bariatric surgery status
CPT/HCPCS: 36415; 74177; 76705; 78264; 80053; 80074; 80306; 81003; 83690; 84443; 84703; 85025; 87015; 87045; 87046; 87177; 87206; 87324; 87328; 87329; 87427; 87449; 88305; 93005; 93010; 96361; 96365; 96366; 96367; 96372; 96374; 96375; 96376; A9541; G0378; J0360; J1200; J1650; J1885; J2250; J2270; J2405; J2550; J2704; J2920; J2930; J3230; J3475; J7120; Q0162; Q0169; Q9963; Q9967; U0003; U0005

== ENCOUNTER 2021-09-21 07:34 | Emergency (ER) | payer SELFPAY ==
[2021-09-21] MEDS ORDERED: Ketorolac Tromethamine 30 MG/ML VIAL ONE (08:43)
[2021-09-21] MEDS ORDERED: diphenhydrAMINE 50 MG/ML VIAL ONE (08:43)
[2021-09-21] MEDS ORDERED: Promethazine HCl 25 MG in Sodium Chloride 0.9% 50 ML IVPB SCH (09:00)
[2021-09-21] MEDS ORDERED: Magnesium 2 GM/50 ML BAG (IN WATER) ONE (10:59)
[2021-09-21] MEDS ORDERED: methylPREDNISolone Sod Succ/PF 125 MG/2 ML VIAL ONE (11:41)
== END 2021-09-21 12:45 | disposition home or self-care (01) ==
LOC: ERS 07:34
DX: R51.9 Headache, unspecified (principal); E03.9 Hypothyroidism, unspecified; K21.9 Gastro-esophageal reflux disease without esophagitis; F17.290 Nicotine dependence, other tobacco product, uncomplicated
CPT/HCPCS: 96365; 96367; 96375; J1200; J1885; J2550; J2930; J3475

== ENCOUNTER 2021-09-30 06:48 | Emergency (ER) | payer SELFPAY ==
[2021-09-30] MEDS ORDERED: Midazolam HCl 2 mg/2 ml Vial ONE (07:17)
[2021-09-30] MEDS ORDERED: Aspirin Chewable 81 MG TAB ONE (07:18)
[2021-09-30 07:21] LABS: #Basophils 0.1 thou/uL (0.0-0.2); #Eosinphils 0.1 thou/uL (0.0-0.7); #Lymphocytes 4.8 thou/uL (1.20-3.40); #Monocytes 0.8 thou/uL (0.11-0.59); #Neutrophils 4.4 thou/uL (1.40-6.50); %Basophils 0.9 % (0.0-1.0); %Eosinophils 1.4 % (0.0-10.0); %Lymphocytes 47.2 % (21.0-51.0); %Monocytes 7.5 % (0.0-10.0); Hemoglobin 13.3 g/dL (12.0-16.0); Mean Corpuscular HGB CONC 34.2 g/dL (32.0-36.0); Mean Corpuscular Hemoglobin 30.6 pg (27.0-31.0); Mean Corpuscular Volume 89.5 fL (78.0-98.0); Mean Platelet Volume 6.6 fL (7.4-10.4); Platelet Count 260 thou/uL (130-400); Red Blood Cell (RBC) Count 4.34 mill/uL (4.20-5.40); White Blood Cell (WBC) Count 10.3 thou/uL (4.8-10.8)
[2021-09-30 07:29] LABS: BHCG - Serum Negative (NEGATIVE)
[2021-09-30 07:30] LABS: Pregs Control Background? CLEAR/WHITE (CLR/WHITE); Pregs Control Bar Appear? YES (CONTROL BAR)
[2021-09-30] MEDS ORDERED: Promethazine HCl 25 MG in Sodium Chloride 0.9% 50 ML IVPB SCH (07:45)
[2021-09-30 08:19] LABS: Albumin 3.9 g/dL (3.5-5.0)
[2021-09-30 08:20] LABS: Calcium 8.4 mg/dL (7.8-10.44); Chloride 106 mmol/L (98-107); Potassium 3.5 mmol/L (3.5-5.1); Sodium 139 mmol/L (136-145)
[2021-09-30 08:21] LABS: Globulin 2.8 g/dL (2.4-3.5); Glucose 101 mg/dL (70-105); Protein, Total 6.7 g/dL (6.0-8.3)
[2021-09-30 08:23] LABS: Anion Gap 12 mmol/L (10-20); Bilirubin, Total 0.4 mg/dL (0.2-1.2); Carbon Dioxide 25 mmol/L (22-29)
[2021-09-30 08:24] LABS: Alkaline Phosphatase 66 U/L (40-110); Calc. Creatinine Clearance 0 mL/min (70-130); Estimated GFR 117
[2021-09-30 08:25] LABS: BUN (Urea Nitrogen) 7 mg/dL (7.0-18.7)
[2021-09-30 08:26] LABS: AST (SGOT) 62 U/L (5-34)
[2021-09-30 08:27] LABS: ALT (SGPT) 68 U/L (8-55); CK (CPK) 57 U/L (29-168); Lipase 23 U/L (8-78)
[2021-09-30] MEDS ORDERED: Fentanyl 100 MCG/2 ML VIAL ONE (08:55)
[2021-09-30] MEDS ORDERED: Ketorolac Tromethamine 30 MG/ML VIAL ONE (08:56)
[2021-09-30] MEDS ORDERED: Morphine 4 MG/ML VIAL ONE (10:18)
[2021-09-30] MEDS ORDERED: diphenhydrAMINE 50 MG/ML VIAL ONE (10:18)
[2021-09-30 10:20] LABS: SARS-CoV-2 NAA Rapid Test DETECTED (NotDetected)
[2021-09-30 10:44] LABS: Troponin I Less than 0.010 ng/mL (< 0.028)
[2021-09-30] MEDS ORDERED: Iopamidol-370 76% 500 ML 1 ML ONE (15:45)
== END 2021-09-30 10:49 | disposition home or self-care (01) ==
LOC: ERS 06:48
DX: U07.1 COVID-19 (principal); E03.9 Hypothyroidism, unspecified; K21.9 Gastro-esophageal reflux disease without esophagitis; F17.290 Nicotine dependence, other tobacco product, uncomplicated
CPT/HCPCS: 36415; 71045; 71275; 80053; 82550; 83690; 84484; 84703; 85025; 85379; 93005; 96365; 96375; J1200; J1885; J2250; J2270; J2550; J3010; Q9967; U0002

== ENCOUNTER 2021-10-15 06:54 | Emergency (ER) | payer SELFPAY ==
[2021-10-15 07:26] LABS: #Basophils 0.1 thou/uL (0.0-0.2); #Eosinphils 0.2 thou/uL (0.0-0.7); #Lymphocytes 4.8 thou/uL (1.20-3.40); #Monocytes 0.7 thou/uL (0.11-0.59); #Neutrophils 4.1 thou/uL (1.40-6.50); %Basophils 1.1 % (0.0-1.0); %Eosinophils 2.3 % (0.0-10.0); %Lymphocytes 47.8 % (21.0-51.0); %Monocytes 7.2 % (0.0-10.0); %Neutrophils 41.7 % (42.0-75.0); Hemoglobin 13.2 g/dL (12.0-16.0); Mean Corpuscular HGB CONC 34.4 g/dL (32.0-36.0); Mean Platelet Volume 6.6 fL (7.4-10.4); Platelet Count 258 thou/uL (130-400); RBC Distribution Width 12.3 % (11.5-14.5); Red Blood Cell (RBC) Count 4.27 mill/uL (4.20-5.40)
[2021-10-15] MEDS ORDERED: Ketorolac Tromethamine 30 MG/ML VIAL ONE (07:31)
[2021-10-15] MEDS ORDERED: Acetaminophen 500 MG TAB ONE (07:31)
[2021-10-15 07:52] LABS: ALT (SGPT) 90 U/L (8-55); AST (SGOT) 75 U/L (5-34); Albumin 4.5 g/dL (3.5-5.0); Alkaline Phosphatase 92 U/L (40-110); Anion Gap 14 mmol/L (10-20); BUN (Urea Nitrogen) 8 mg/dL (7.0-18.7); Bilirubin, Total 0.4 mg/dL (0.2-1.2); Calc. Creatinine Clearance 0 mL/min (70-130); Calcium 9.8 mg/dL (7.8-10.44); Carbon Dioxide 26 mmol/L (22-29); Chloride 104 mmol/L (98-107); Estimated GFR 106; Globulin 3.5 g/dL (2.4-3.5); Glucose 93 mg/dL (70-105); Potassium 3.6 mmol/L (3.5-5.1); Sodium 140 mmol/L (136-145)
== END 2021-10-15 07:50 | disposition home or self-care (01) ==
LOC: ERS 06:54
DX: S86.911A Strain of unspecified muscle(s) and tendon(s) at lower leg level, right leg, initial encounter (principal); E03.9 Hypothyroidism, unspecified; K21.9 Gastro-esophageal reflux disease without esophagitis; E28.2 Polycystic ovarian syndrome; F17.290 Nicotine dependence, other tobacco product, uncomplicated; X50.0XXA Overexertion from strenuous movement or load, initial encounter; Y93.F2 Activity, caregiving, lifting; Z79.899 Other long term (current) drug therapy
CPT/HCPCS: 80053; 85025; 96374; J1885

== ENCOUNTER 2021-11-11 05:46 | Emergency (ER) | payer SELFPAY ==
[2021-11-11 08:23] LABS: #Basophils 0.1 thou/uL (0.0-0.2); #Eosinphils 0.2 thou/uL (0.0-0.7); #Lymphocytes 4.8 thou/uL (1.20-3.40); #Monocytes 0.6 thou/uL (0.11-0.59); #Neutrophils 4.4 thou/uL (1.40-6.50); %Basophils 0.8 % (0.0-1.0); %Eosinophils 1.7 % (0.0-10.0); %Lymphocytes 47.6 % (21.0-51.0); %Monocytes 6.1 % (0.0-10.0); %Neutrophils 43.8 % (42.0-75.0); Hemoglobin 14.4 g/dL (12.0-16.0); Mean Corpuscular HGB CONC 34.2 g/dL (32.0-36.0); Mean Corpuscular Hemoglobin 30.7 pg (27.0-31.0); Mean Corpuscular Volume 89.7 fL (78.0-98.0); Mean Platelet Volume 6.4 fL (7.4-10.4); Platelet Count 280 thou/uL (130-400); RBC Distribution Width 12.1 % (11.5-14.5); Red Blood Cell (RBC) Count 4.69 mill/uL (4.20-5.40)
[2021-11-11] MEDS ORDERED: Acetaminophen 500 MG TAB ONE (08:38)
[2021-11-11] MEDS ORDERED: diphenhydrAMINE 50 MG/ML VIAL ONE (08:39)
[2021-11-11 08:45] LABS: ALT (SGPT) 63 U/L (8-55); AST (SGOT) 49 U/L (5-34); Albumin 4.5 g/dL (3.5-5.0); Alkaline Phosphatase 74 U/L (40-110); Anion Gap 13 mmol/L (10-20); BUN (Urea Nitrogen) 7 mg/dL (7.0-18.7); Bilirubin, Total 0.4 mg/dL (0.2-1.2); Calc. Creatinine Clearance 0 mL/min (70-130); Calcium 9.6 mg/dL (7.8-10.44); Carbon Dioxide 25 mmol/L (22-29); Chloride 106 mmol/L (98-107); Estimated GFR 101; Globulin 3.5 g/dL (2.4-3.5); Glucose 98 mg/dL (70-105); Potassium 4.3 mmol/L (3.5-5.1); Sodium 140 mmol/L (136-145)
[2021-11-11] MEDS ORDERED: Promethazine HCl 12.5 MG in Sodium Chloride 0.9% 1,000 ML IVPB SCH (09:15)
[2021-11-11] MEDS ORDERED: Ketorolac Tromethamine 30 MG/ML VIAL ONE (11:00)
[2021-11-11] MEDS ORDERED: Magnesium 2 GM/50 ML BAG (IN WATER) ONE (11:00)
== END 2021-11-11 13:11 | disposition home or self-care (01) ==
LOC: ERS 05:46
DX: G43.909 Migraine, unspecified, not intractable, without status migrainosus (principal); F17.290 Nicotine dependence, other tobacco product, uncomplicated
CPT/HCPCS: 80053; 84484; 85025; 93005; 96365; 96366; 96368; 96375; J1200; J1885; J2550; J3475; J7050

== ENCOUNTER 2022-10-18 19:13 | Emergency (ER) | payer SELFPAY ==
[2022-10-18] MEDS ORDERED: Ketorolac Tromethamine 30 MG/ML VIAL ONE (19:54)
[2022-10-18] MEDS ORDERED: diphenhydrAMINE 50 MG/ML VIAL ONE (19:54)
[2022-10-18] MEDS ORDERED: Dexameth. Sod Phosp. 10 MG/ML (CHEMO USE ONLY) ONE (19:54)
[2022-10-18 20:00] LABS: #Basophils 0.1 thou/uL (0.0-0.2); #Eosinphils 0.2 thou/uL (0.0-0.7); #Monocytes 0.5 thou/uL (0.11-0.59); #Neutrophils 3.7 thou/uL (1.40-6.50); %Basophils 0.7 % (0.0-1.0); %Eosinophils 2.5 % (0.0-10.0); %Lymphocytes 44.7 % (21.0-51.0); %Monocytes 6.1 % (0.0-10.0); %Neutrophils 45.6 % (42.0-75.0); Hematocrit 40.5 % (36.0-47.0); Hemoglobin 13.9 g/dL (12.0-16.0); Mean Corpuscular HGB CONC 34.3 g/dL (32.0-36.0); Mean Corpuscular Volume 87.5 fl (78.0-98.0); Mean Platelet Volume 9.7 fL (7.4-10.4); Platelet Count 222 10x3/uL (130-400); RBC Distribution Width 12.8 % (11.5-14.5); Red Blood Cell (RBC) Count 4.63 mill/uL (4.20-5.40); White Blood Cell (WBC) Count 8.2 10x3/uL (4.8-10.8)
[2022-10-18] MEDS ORDERED: Metoclopramide HCl 10 MG/2 ML VIAL ONE (20:02)
[2022-10-18 20:09] LABS: BHCG - Serum Negative (NEGATIVE); Pregs Control Background? CLEAR/WHITE (CLR/WHITE); Pregs Control Bar Appear? YES (CONTROL BAR)
[2022-10-18 20:27] LABS: ALT (SGPT) 114 U/L (8-55); AST (SGOT) 131 U/L (5-34); Albumin 4.6 g/dL (3.5-5.0); Alkaline Phosphatase 74 U/L (40-110); Anion Gap 12 mmol/L (10-20); BUN (Urea Nitrogen) 9 mg/dL (7.0-18.7); Bilirubin, Total 0.5 mg/dL (0.2-1.2); Calc. Creatinine Clearance 0 mL/min (70-130); Calcium 9.4 mg/dL (7.8-10.44); Carbon Dioxide 25 mmol/L (22-29); Chloride 105 mmol/L (98-107); Estimated GFR 87; Globulin 3.3 g/dL (2.4-3.5); Glucose 190 mg/dL (70-105); Lipase 26 U/L (8-78); Potassium 3.9 mmol/L (3.5-5.1); Protein, Total 7.9 g/dL (6.0-8.3); Sodium 138 mmol/L (136-145)
[2022-10-18 20:55] LABS: Bilirubin Negative (Negative); Blood, Urine Negative (Negative); CAUTI Indications for Culture Urological Procedure; Clarity Turbid (Clear); Glucose, Urine (Dipstick) 50 mg/dL (Negative); Ketone, Urine Negative (Negative); Leukocyte Negative Leu/uL (Negative); Mucous/LPF Rare LPF (<2+); Nitrite Negative (Negative); Protein, Urine (Dipstick) 50 mg/dL (Neg-Trace); RBC/HPF 0-3 HPF (0-3); Specific Gravity, Urine 1.028 (1.002-1.036); WBC/HPF 0-3 HPF (0-3); pH, Urine 5.5 (5.0-9.0)
[2022-10-18 21:01] LABS: Bacteria/HPF 3+ HPF (None Seen)
[2022-10-18 21:08] LABS: Urine Culture Reflex Yes Yes
[2022-10-18] MEDS ORDERED: Magnesium 2 GM/50 ML BAG (IN WATER) ONE (21:13)
[2022-10-18] MEDS ORDERED: Morphine 4 MG/ML VIAL ONE (22:34)
== END 2022-10-18 23:19 | disposition home or self-care (01) ==
LOC: ERS 19:13
DX: R51.9 Headache, unspecified (principal); R11.2 Nausea with vomiting, unspecified; E03.9 Hypothyroidism, unspecified; K21.9 Gastro-esophageal reflux disease without esophagitis; I10 Essential (primary) hypertension; F17.290 Nicotine dependence, other tobacco product, uncomplicated
CPT/HCPCS: 80053; 81001; 83690; 84703; 85025; 87086; 96365; 96366; 96368; 96375; J1100; J1200; J1885; J2270; J2765; J3475

== ENCOUNTER 2023-01-28 23:50 | Emergency (ER) | payer SELFPAY ==
[2023-01-29] MEDS ORDERED: Ketorolac Tromethamine 30 MG/ML VIAL ONE (01:51)
[2023-01-29] MEDS ORDERED: Acetaminophen 500 MG TAB ONE (01:51)
[2023-01-29] MEDS ORDERED: Magnesium 2 GM/50 ML BAG (IN WATER) ONE (01:51)
[2023-01-29] MEDS ORDERED: Dexamethasone 10 MG/ML VIAL ONE (03:26)
[2023-01-29] MEDS ORDERED: diphenhydrAMINE 50 MG/ML VIAL ONE (03:26)
[2023-01-29] MEDS ORDERED: Metoclopramide HCl 10 MG/2 ML VIAL ONE (03:27)
== END 2023-01-29 04:30 | disposition home or self-care (01) ==
LOC: ERS 23:50
DX: H92.02 Otalgia, left ear (principal); R51.9 Headache, unspecified; I10 Essential (primary) hypertension; E03.9 Hypothyroidism, unspecified; F17.290 Nicotine dependence, other tobacco product, uncomplicated; K21.9 Gastro-esophageal reflux disease without esophagitis; Z79.890 Hormone replacement therapy
CPT/HCPCS: 96365; 96367; 96375; J1100; J1200; J1885; J2765; J3475

== ENCOUNTER 2023-02-28 08:27 | Emergency (ER) | payer SELFPAY ==
[2023-02-28] MEDS ORDERED: Ondansetron PF 4 MG/2 ML Vial ONE (09:26)
[2023-02-28] MEDS ORDERED: Ketorolac Tromethamine 30 MG (1 mL) VIAL ONE (09:26)
[2023-02-28 09:30] LABS: Bacteria/HPF None Seen HPF (None Seen); Bilirubin Negative (Negative); Blood, Urine Negative (Negative); CAUTI Indications for Culture Dysuria,urgency,freq; Clarity Clear (Clear); Glucose, Urine (Dipstick) Normal (Negative); Ketone, Urine Negative (Negative); Leukocyte Negative Leu/uL (Negative); Nitrite Negative (Negative); Protein, Urine (Dipstick) Negative (Neg-Trace); RBC/HPF 0-3 HPF (0-3); Specific Gravity, Urine 1.016 (1.002-1.036); Urobilinogen Normal mg/dL (Less than 2); WBC/HPF 0-3 HPF (0-3)
[2023-02-28 09:35] LABS: Urine Culture Reflex No No
[2023-02-28 09:49] LABS: #Basophils 0.1 thou/uL (0.0-0.2); #Eosinphils 0.1 thou/uL (0.0-0.7); #Monocytes 0.6 thou/uL (0.11-0.59); #Neutrophils 4.2 thou/uL (1.40-6.50); %Basophils 0.6 % (0.0-1.0); %Eosinophils 1.7 % (0.0-10.0); %Lymphocytes 38.8 % (21.0-51.0); %Monocytes 7.2 % (0.0-10.0); %Neutrophils 51.2 % (42.0-75.0); Hematocrit 40.7 % (36.0-47.0); Hemoglobin 13.8 g/dL (12.0-16.0); Mean Corpuscular HGB CONC 33.9 g/dL (32.0-36.0); Mean Corpuscular Hemoglobin 30.5 pg (27.0-31.0); Mean Platelet Volume 8.8 fL (7.4-10.4); Platelet Count 239 10x3/uL (130-400); RBC Distribution Width 12.6 % (11.5-14.5); Red Blood Cell (RBC) Count 4.52 mill/uL (4.20-5.40); White Blood Cell (WBC) Count 8.2 10x3/uL (4.8-10.8)
[2023-02-28 10:18] LABS: ALT (SGPT) 96 U/L (8-55); AST (SGOT) 92 U/L (5-34); Albumin 4.3 g/dL (3.5-5.0); Alkaline Phosphatase 63 U/L (40-110); Anion Gap 12 mmol/L (10-20); BUN (Urea Nitrogen) 7 mg/dL (7.0-18.7); Bilirubin, Total 0.7 mg/dL (0.2-1.2); Calc. Creatinine Clearance 0 mL/min (70-130); Calcium 9.1 mg/dL (7.8-10.44); Carbon Dioxide 27 mmol/L (22-29); Chloride 104 mmol/L (98-107); Estimated GFR 116; Globulin 3.1 g/dL (2.4-3.5); Glucose 105 mg/dL (70-105); Lipase 14 U/L (8-78); Potassium 4.1 mmol/L (3.5-5.1); Protein, Total 7.4 g/dL (6.0-8.3); Sodium 139 mmol/L (136-145)
[2023-02-28 10:24] LABS: SARS-CoV-2 NAA Rapid Test Not Detected (NotDetected)
== END 2023-02-28 11:46 | disposition home or self-care (01) ==
LOC: ERS 08:27
DX: K52.9 Noninfective gastroenteritis and colitis, unspecified (principal); F17.290 Nicotine dependence, other tobacco product, uncomplicated
CPT/HCPCS: 36415; 80053; 81001; 83690; 85025; 96361; 96374; 96375; J1885; J2405

== ENCOUNTER 2023-05-04 19:15 | Emergency (ER) | payer BC, SELFPAY ==
[2023-05-04 20:04] LABS: #Basophils 0.1 thou/uL (0.0-0.2); #Eosinphils 0.2 thou/uL (0.0-0.7); #Monocytes 0.5 thou/uL (0.11-0.59); #Neutrophils 4.6 thou/uL (1.40-6.50); %Basophils 0.7 % (0.0-1.0); %Lymphocytes 37.3 % (21.0-51.0); %Neutrophils 53.8 % (42.0-75.0); Hematocrit 39.3 % (36.0-47.0); Hemoglobin 14.1 g/dL (12.0-16.0); Mean Corpuscular HGB CONC 35.9 g/dL (32.0-36.0); Mean Corpuscular Volume 86.4 fl (78.0-98.0); Mean Platelet Volume 8.8 fL (7.4-10.4); Platelet Count 257 10x3/uL (130-400); RBC Distribution Width 12.5 % (11.5-14.5); Red Blood Cell (RBC) Count 4.55 mill/uL (4.20-5.40); White Blood Cell (WBC) Count 8.5 10x3/uL (4.8-10.8)
[2023-05-04 20:14] LABS: BHCG - Serum Negative (NEGATIVE); Pregs Control Background? CLEAR/WHITE (CLR/WHITE); Pregs Control Bar Appear? YES (CONTROL BAR)
[2023-05-04 20:31] LABS: ALT (SGPT) 60 U/L (8-55); AST (SGOT) 54 U/L (5-34); Albumin 4.3 g/dL (3.5-5.0); Alkaline Phosphatase 73 U/L (40-110); Anion Gap 14 mmol/L (10-20); BUN (Urea Nitrogen) 9 mg/dL (7.0-18.7); Bilirubin, Total 0.6 mg/dL (0.2-1.2); Calc. Creatinine Clearance 0 mL/min (70-130); Calcium 9.3 mg/dL (7.8-10.44); Carbon Dioxide 21 mmol/L (22-29); Chloride 107 mmol/L (98-107); Estimated GFR 95; Globulin 3.2 g/dL (2.4-3.5); Glucose 107 mg/dL (70-105); Lipase 22 U/L (8-78); Potassium 4.1 mmol/L (3.5-5.1); Protein, Total 7.5 g/dL (6.0-8.3); Sodium 138 mmol/L (136-145)
[2023-05-04 20:34] LABS: Troponin I Less than 0.010 ng/mL (< 0.028)
[2023-05-04] MEDS ORDERED: Morphine 4 MG/ML VIAL ONE (23:09)
[2023-05-04] MEDS ORDERED: Ondansetron PF 4 MG/2 ML Vial ONE (23:09)
[2023-05-04] MEDS ORDERED: diphenhydrAMINE 25 MG CAP ONE (23:33)
[2023-05-04 23:58] LABS: Troponin I Less than 0.010 ng/mL (< 0.028)
[2023-05-05] MEDS ORDERED: Ketorolac Tromethamine 30 MG (1 mL) VIAL ONE (00:26)
[2023-05-05] MEDS ORDERED: diphenhydrAMINE 25 MG CAP ONE (00:35)
== END 2023-05-05 00:40 | disposition home or self-care (01) ==
LOC: ERS 19:15
DX: R07.9 Chest pain, unspecified (principal); K21.9 Gastro-esophageal reflux disease without esophagitis; I10 Essential (primary) hypertension; F17.290 Nicotine dependence, other tobacco product, uncomplicated; Z79.899 Other long term (current) drug therapy
CPT/HCPCS: 36415; 71045; 80053; 83690; 84484; 84703; 85025; 85379; 93005; 96374; 96375; J1885; J2270; J2405

== ENCOUNTER 2023-05-08 01:44 | Emergency (ER) | payer SELFPAY ==
[2023-05-08] MEDS ORDERED: Acetaminophen 500 MG TAB ONE (01:54)
[2023-05-08 02:59] LABS: Influenza A by NAA DETECTED (NotDetected); Influenza B by NAA Not Detected (NotDetected); SARS-CoV-2 NAA Rapid Test Not Detected (NotDetected)
== END 2023-05-08 03:17 | disposition home or self-care (01) ==
LOC: ERS 01:44
DX: J11.1 Influenza due to unidentified influenza virus with other respiratory manifestations (principal); I10 Essential (primary) hypertension; F17.290 Nicotine dependence, other tobacco product, uncomplicated; K21.9 Gastro-esophageal reflux disease without esophagitis; Z79.899 Other long term (current) drug therapy
CPT/HCPCS: 99284

== ENCOUNTER 2024-01-19 08:46 | Emergency (ER) | payer SELFPAY ==
[2024-01-19] MEDS ORDERED: Dicyclomine 20 MG TAB ONE (09:09)
[2024-01-19] MEDS ORDERED: Morphine 4 MG/ML VIAL ONE (09:20)
[2024-01-19] MEDS ORDERED: Ondansetron PF 4 MG/2 ML Vial ONE ×2 (09:21→12:23)
[2024-01-19] MEDS ORDERED: diphenhydrAMINE 50 MG/ML VIAL ONE ×2 (09:55→12:23)
[2024-01-19 10:06] LABS: ALT (SGPT) 90 U/L (8-55); AST (SGOT) 62 U/L (5-34); Alkaline Phosphatase 73 U/L (40-110); Anion Gap 15 mmol/L (10-20); BUN (Urea Nitrogen) 5 mg/dL (7.0-18.7); Bilirubin, Total 0.5 mg/dL (0.2-1.2); Calc. Creatinine Clearance 0 mL/min (70-130); Calcium 8.9 mg/dL (7.8-10.44); Carbon Dioxide 23 mmol/L (22-29); Chloride 105 mmol/L (98-107); Estimated GFR 100; Globulin 3.4 g/dL (2.4-3.5); Glucose 135 mg/dL (70-105); Lipase 17 U/L (8-78); Potassium 3.9 mmol/L (3.5-5.1); Protein, Total 7.4 g/dL (6.0-8.3); Sodium 139 mmol/L (136-145)
[2024-01-19 10:07] LABS: BHCG - Serum Negative (NEGATIVE); Pregs Control Background? CLEAR/WHITE (CLR/WHITE); Pregs Control Bar Appear? YES (CONTROL BAR)
[2024-01-19 10:11] LABS: #Basophils 0.04 10x3/uL (0.0-0.2); %Basophils 0.3 % (0.0-1.0); %Lymphocytes 14.6 % (21.0-51.0); %Monocytes 6.1 % (0.0-10.0); %Neutrophils 77.6 % (42.0-75.0); Hematocrit 41.1 % (36.0-47.0); Hemoglobin 13.9 g/dL (12.0-16.0); Mean Corpuscular HGB CONC 33.8 g/dL (32.0-36.0); Mean Corpuscular Volume 88.6 fL (78.0-98.0); Mean Platelet Volume 9.1 fL (7.4-10.4); Platelet Count 237 10x3/uL (130-400); RBC Distribution Width 12.5 % (11.5-14.5); Red Blood Cell (RBC) Count 4.64 mill/uL (4.20-5.40)
[2024-01-19] MEDS ORDERED: Iopamidol-370 76% 500 ML MDV (1 ML CHARGE) ONE (10:31)
[2024-01-19 11:13] LABS: Bilirubin Negative (Negative); Blood, Urine Negative (Negative); CAUTI Indications for Culture Pelvic or flank pain; Glucose, Urine (Dipstick) Normal (Negative); Ketone, Urine Negative (Negative); Leukocyte Negative Leu/uL (Negative); Nitrite Negative (Negative); Protein, Urine (Dipstick) 20 mg/dL (Neg-Trace); Specific Gravity, Urine 1.027 (1.002-1.036); Urobilinogen Normal mg/dL (Less than 2); WBC/HPF 0-3 HPF (0-3)
[2024-01-19] MEDS ORDERED: HYDROmorphone 0.5 MG/0.5 ML SYRINGE ONE (11:18)
[2024-01-19 11:26] LABS: Clarity Cloudy (Clear)
[2024-01-19 11:27] LABS: Bacteria/HPF 2+ HPF (None Seen)
[2024-01-19 11:28] LABS: Urine Culture Reflex No No
== END 2024-01-19 13:58 | disposition home or self-care (01) ==
LOC: ERS 08:46
DX: R19.7 Diarrhea, unspecified (principal); R10.31 Right lower quadrant pain; I10 Essential (primary) hypertension; E03.9 Hypothyroidism, unspecified; K21.9 Gastro-esophageal reflux disease without esophagitis; F17.290 Nicotine dependence, other tobacco product, uncomplicated; Z79.890 Hormone replacement therapy; Z79.899 Other long term (current) drug therapy
CPT/HCPCS: 74177; 80053; 81001; 83690; 84703; 85025; 87324; 87449; 96374; 96375; 96376; J1200; J2272; J2405; Q9967

== ENCOUNTER 2024-01-21 05:22 | Emergency (ER) | payer SELFPAY ==
[2024-01-21 05:59] LABS: #Basophils 0.04 10x3/uL (0.0-0.2); %Basophils 0.4 % (0.0-1.0); %Eosinophils 1.9 % (0.0-10.0); %Lymphocytes 43.3 % (21.0-51.0); %Monocytes 9.5 % (0.0-10.0); %Neutrophils 44.4 % (42.0-75.0); Hematocrit 36.7 % (36.0-47.0); Hemoglobin 12.7 g/dL (12.0-16.0); Mean Corpuscular HGB CONC 34.6 g/dL (32.0-36.0); Mean Corpuscular Hemoglobin 30.6 pg (27.0-31.0); Mean Corpuscular Volume 88.4 fL (78.0-98.0); Mean Platelet Volume 9.3 fL (7.4-10.4); Platelet Count 193 10x3/uL (130-400); RBC Distribution Width 12.8 % (11.5-14.5); Red Blood Cell (RBC) Count 4.15 mill/uL (4.20-5.40)
[2024-01-21 06:19] LABS: BHCG - Serum Negative (NEGATIVE); Pregs Control Background? CLEAR/WHITE (CLR/WHITE); Pregs Control Bar Appear? YES (CONTROL BAR)
[2024-01-21] MEDS ORDERED: Ketorolac Tromethamine 30 MG (1 mL) VIAL ONE (06:19)
[2024-01-21 06:21] LABS: ALT (SGPT) 69 U/L (8-55); AST (SGOT) 51 U/L (5-34); Albumin 3.5 g/dL (3.5-5.0); Alkaline Phosphatase 92 U/L (40-110); Anion Gap 12 mmol/L (10-20); BUN (Urea Nitrogen) 4 mg/dL (7.0-18.7); Bilirubin, Total 0.3 mg/dL (0.2-1.2); Calc. Creatinine Clearance 0 mL/min (70-130); Calcium 8.7 mg/dL (7.8-10.44); Carbon Dioxide 24 mmol/L (22-29); Chloride 108 mmol/L (98-107); Estimated GFR 116; Globulin 3.2 g/dL (2.4-3.5); Glucose 99 mg/dL (70-105); Lipase 18 U/L (8-78); Potassium 3.9 mmol/L (3.5-5.1); Protein, Total 6.7 g/dL (6.0-8.3); Sodium 140 mmol/L (136-145)
[2024-01-21] MEDS ORDERED: Droperidol 5 MG/2 ML VIAL ONE ×2 (07:14→07:16)
[2024-01-21 08:38] LABS: Bacteria/HPF None Seen HPF (None Seen); Bilirubin Negative (Negative); Blood, Urine Negative (Negative); CAUTI Indications for Culture Pelvic or flank pain; Clarity Clear (Clear); Glucose, Urine (Dipstick) Normal (Negative); Ketone, Urine Negative (Negative); Leukocyte Negative Leu/uL (Negative); Nitrite Negative (Negative); Protein, Urine (Dipstick) Negative (Neg-Trace); RBC/HPF 0-3 HPF (0-3); Specific Gravity, Urine 1.008 (1.002-1.036); Urobilinogen Normal mg/dL (Less than 2); WBC/HPF 0-3 HPF (0-3); pH, Urine 5.5 (5.0-9.0)
[2024-01-21 08:39] LABS: Urine Culture Reflex No No
== END 2024-01-21 08:49 | disposition home or self-care (01) ==
LOC: ERS 05:22
DX: R10.9 Unspecified abdominal pain (principal); R10.811 Right upper quadrant abdominal tenderness; R10.812 Left upper quadrant abdominal tenderness; J11.1 Influenza due to unidentified influenza virus with other respiratory manifestations; K21.9 Gastro-esophageal reflux disease without esophagitis; I10 Essential (primary) hypertension; E03.9 Hypothyroidism, unspecified; F17.290 Nicotine dependence, other tobacco product, uncomplicated; Z79.899 Other long term (current) drug therapy
CPT/HCPCS: 74176; 80053; 81001; 83690; 84703; 85025; 96374; 96375; J1790; J1885

== ENCOUNTER 2024-02-18 07:31 | Outpatient (CLI) | payer OTHER | END 2024-02-18 07:32 | disposition home or self-care (01) | LOC: BICMRI 07:31 | PROVIDERS: ATTEND Family Medicine | DX: S39.012D Strain of muscle, fascia and tendon of lower back, subsequent encounter (principal); M51.24 Other intervertebral disc displacement, thoracic region; M51.369 Other intervertebral disc degeneration, lumbar region without mention of lumbar back pain or lower extremity pain; M48.061 Spinal stenosis, lumbar region without neurogenic claudication; Z98.890 Other specified postprocedural states | CPT/HCPCS: 72148 ==